=== PATIENT | male | born 1975 | race Caucasian/White ===

== ENCOUNTER → 2024-12-01 | Outpatient (CLI) | payer OTHER, SELFPAY ==
--- NOTE | 2024-12-01 13:56 | VDLE_ITS ---
Reason For Study Reason For Study: Edema RIGHT LEFT GSV is normal. CFV is compressible, spontaneous, phasic, competent, CFV is compressible, spontaneous, phasic, competent and demonstrates normal augmentation. and demonstrates normal augmentation. FV is compressible, spontaneous, phasic, competent and demonstrates normal augmentation. POP V is compressible, spontaneous, phasic, competent and demonstrates normal augmentation. T/P Trunk is compressible. PTV is compressible. RT PerV is compressible. Nonvascularized structure noted in the popliteal fossa measuring 4.28 x 9.31 cm. Nonvascularized structure noted in the mid calf measuring 4.25 x 2.03 cm. Procedure This is a venous duplex using B-mode, color flow and spectral Doppler. Exam performed in department. A preliminary report was called and/or faxed to Josep Medley MD. VL/Venous Duplex US, Unilateral Interpretation Summary Deep veins of the right lower extremity are patent and compressible segmentally . There is no evidence of right lower extremity deep vein thrombosis. The right great saphenous vein appears patent a nd compressible segmentally. Nonvascularized structure noted in the popliteal fossa measuring 4.28 x 9.31 cm . Nonvascularized structure noted in the mid calf measuring 4.25 x 2.03 cm. Ordering Physician: Josep Medley Performed By: Emily Small RVT
== END | disposition home or self-care (01) ==
LOC: CVS 13:52
PROVIDERS: Referring Provider Family Medicine; Visit Provider Family Medicine
DX: R60.0 Localized edema (principal)
CPT/HCPCS: 93971